=== PATIENT | male | born 1985 | race Caucasian/White ===

== ENCOUNTER 2022-06-19 13:28 | Emergency (ER) | payer MEDICAID, SELFPAY ==
[2022-06-19 13:44] VITALS: BP 169/108; PULSE 107; RESP 19; TEMP 36.8; O2SAT 94; BMI 23.7
[2022-06-19 13:48] VITALS: BP 169/108; PULSE 107; RESP 18; TEMP 36.6; O2SAT 94; BMI 23.7
--- NOTE | 2022-06-19 14:21 | ED_ITS ---
HPI - General Adult General: Chief complaint: General Medical Stated complaint: hands and face yasir Time Seen by Provider: 06/19/22 14:16 History of Present Illness: 36-year-old with history of alcoholism presents due to concern for cramping of his arm muscles and perioral paresthesias. States this started around 9 AM this morning. Denies any pain. States sensation is overall improving. Denies any head injury. States that sensation is equal bilaterally. Denies any weakness. States his last drink was yesterday. Denies any withdrawal seizure history. Review of Systems Narrative: - CONSTITUTIONAL: Denies weight loss, fever and chills. - HEENT: Denies changes in vision and hearing. - RESPIRATORY: Denies SOB and cough. - CV: Denies palpitations and CP. - GI: Denies abdominal pain, nausea, vomiting and diarrhea. - : Denies dysuria and urinary frequency. - MSK: Denies myalgia and joint pain. - SKIN: Denies rash and pruritus. - NEUROLOGICAL: As above - PSYCHIATRIC: Denies suicidal ideation PFSH ED PFSH: Medical History (Updated 01/02/20 @ 09:53 by JASMYNE Corbett) Alcoholism Anxiety and depression Lumbar disc disease Family History Other Hypertension Lupus nephritis Social History (Updated 01/02/20 @ 23:58 by JASMYNE Corbett) Smoking and tobacco status: current every day smoker Alcohol intake: current Alcohol intake frequency: other Household members: spouse and children Physical Exam Narrative: EXAM NARRATIVE: - GENERAL: Alert and oriented x 3. No acute distress. Well-nourished. - EYES: EOMI. Anicteric. - HENT: Atraumatic, no C-spine tenderness. Moist mucous membranes. No scleral icterus. No cervical lymphadenopathy. - LUNGS: Clear to auscultation bilaterally. No accessory muscle use. Equal lung sounds bilaterally. No respiratory distress. - CARDIOVASCULAR: Regular rate and rhythm. No murmur. No JVD. - ABDOMEN: Soft, non-tender and non-distended. Negative CVA tenderness bilaterally, no rebound or guarding, negative Pereyra sign. No palpable masses. - EXTREMITIES: No edema. Non-tender. Able to freely move arm and hand muscles. - SKIN: No rashes or lesions. Warm. - NEUROLOGIC: No meningismus or focal neurological deficits. CN II-XII grossly intact. - PSYCHIATRIC: Cooperative. Appropriate mood and affect. Course Vital Signs: Vital signs: Vital Signs Temperature 97.9 F 06/19/22 13:48 Pulse Rate 107 H 06/19/22 13:48 Respiratory Rate 18 06/19/22 13:48 Blood Pressure 169/108 06/19/22 13:48 Pulse Oximetry 94 06/19/22 13:48 MDM - General Adult Medical Decision Making 36-year-old presents due to perioral paresthesias and muscle contractions. Lab work including electrolytes unremarkable except for elevated LFTs for which outpatient follow-up was recommended. This is likely secondary to his alcoholism. He denies any right upper quadrant pain his negative Pereyra sign. No focal neurologic deficits present on exam. Symptoms are equal bilaterally. At this time I believe patient would be safe for discharge and outpatient follow-up. Return precautions provided. Plan was reviewed with the patient who expressed understanding. Questions answered. Patient will follow up with PCP. Patient discharged in stable condition. Lab Data : 06/19/22 14:53 06/19/22 14:53 Laboratory Results WBC 7.0 10^3/uL (4.0-10.0) 06/19/22 14:53 RBC 5.67 10^6/uL (4.1-5.3) H 06/19/22 14:53 Hgb 19.5 g/dL (11.7-16.6) H 06/19/22 14:53 Hct 53.8 % (42.0-52.0) H 06/19/22 14:53 MCV 94.9 fl (80-94) H 06/19/22 14:53 MCH 34.4 pg (28.0-34.0) H 06/19/22 14:53 MCHC 36.2 g/dL (30.0-36.0) H 06/19/22 14:53 RDW 14.2 % (12.1-15.1) 06/19/22 14:53 Plt Count 125 10^3/cmm (130-400) L 06/19/22 14:53 MPV 10.3 fL (7.4-10.4) 06/19/22 14:53 Neut % (Auto) 74.6 % 06/19/22 14:53 Lymph % (Auto) 14.2 % 06/19/22 14:53 [place] % (Auto) 9.9 % 06/19/22 14:53 Eos % (Auto) 0.3 % 06/19/22 14:53 Baso % (Auto) 0.7 % 06/19/22 14:53 Neut # (Auto) 5.22 10^3/uL (1.8-7.7) 06/19/22 14:53 Lymph # (Auto) 1.0 10^3/uL (0.8-4.8) 06/19/22 14:53 [place] # (Auto) 0.7 10^3/uL (0.2-0.9) 06/19/22 14:53 Eos # (Auto) 0.0 10^3/uL (0.0-0.8) 06/19/22 14:53 Baso # (Auto) 0.1 10^3/uL (0.0-0.1) 06/19/22 14:53 Nucleated RBC % (auto) 0 % 06/19/22 14:53 Nucleated RBCs # 0.0 /100WBC 06/19/22 14:53 Sodium 141 mmol/L (136-145) 06/19/22 14:53 Potassium 3.4 mmol/L (3.5-5.1) L 06/19/22 14:53 Chloride 92 mmol/L (98-107) L 06/19/22 14:53 Carbon Dioxide 31 mmol/L (22-29) H 06/19/22 14:53 Anion Gap 21.4 (5-19) H 06/19/22 14:53 BUN 9 mg/dL (6-20) 06/19/22 14:53 Creatinine 0.6 mg/dL (0.7-1.2) L 06/19/22 14:53 GFR Calculation 152.4 mL/min (90-130) H 06/19/22 14:53 Glucose 107 mg/dL (65-115) 06/19/22 14:53 Calculated Osmolality 291 mOsm/kg (285-295) 06/19/22 14:53 Calcium 9.6 mg/dL (8.5-10.5) 06/19/22 14:53 Magnesium 2.0 mg/dL (1.7-2.3) 06/19/22 14:53 Total Bilirubin 1.9 mg/dL (0.15-1.2) H 06/19/22 14:53 AST 54 U/L (0-40) H 06/19/22 14:53 ALT 63 U/L (0-41) H 06/19/22 14:53 Alkaline Phosphatase 198 IU/L (40-130) H 06/19/22 14:53 Total Protein 7.6 g/dL (6.6-8.7) 06/19/22 14:53 Albumin 5.1 g/dL (3.5-5.2) 06/19/22 14:53 Globulin 2.5 g/dL (1.3-4.6) 06/19/22 14:53 TSH 3.26 uIU/mL (0.27-4.20) 06/19/22 14:53 Free T4 1.19 ng/dL (0.82-1.77) 06/19/22 14:53 Ethyl Alcohol 11 mg/dL (0-10) H 06/19/22 14:53 Discharge Plan Discharge Condition: Stable Prescriptions: No Action ibuprofen 800 mg tablet 800 mg PO Q8H Qty: 90 1RF Rx Instructions: Take on scheduled basis DO NOT TAKE WITH OTC IBUPROFEN methylprednisolone [Methylpred DP] 4 mg tablets,dose pack See Rx Instructions PO PER PKG DIR Qty: 21 0RF Rx Instructions: PO PER PKG DIR Referrals: Niki Saunders FNP [Primary Care Provider] - Coding Level of Care Code ED Blood Bank Order Control Clerk for Keshawn Pelaez
[2022-06-19] MEDS: sodium chloride 0.9% 1,000 ML 999 ML IV (14:56)
[2022-06-19] MEDS: multivitamin therapeutic Tablet 1 TAB PO (14:56)
[2022-06-19 15:01] LABS: Basophils # 0.1 10^3/uL (0.0-0.1); Basophils % 0.7 %; Eosinophils % 0.3 %; Hematocrit 53.8 % (42.0-52.0); Hemoglobin 19.5 g/dL (11.7-16.6); Lymphocytes % 14.2 %; Mean Corpuscular HGB Conc 36.2 g/dL (30.0-36.0); Mean Corpuscular Hemoglobin 34.4 pg (28.0-34.0); Mean Corpuscular Volume 94.9 fl (80-94); Mean Platelet Volume 10.3 fL (7.4-10.4); Monocytes # 0.7 10^3/uL (0.2-0.9); Monocytes % 9.9 %; Neutrophils # 5.22 10^3/uL (1.8-7.7); Neutrophils % 74.6 %; Nucleated Red Blood Cells % 0 %; Platelet Count 125 10^3/cmm (130-400); Red Blood Count 5.67 10^6/uL (4.1-5.3); Red Cell Distribution Width 14.2 % (12.1-15.1)
[2022-06-19 15:37] LABS: Alanine Aminotransferase 63 U/L (0-41); Albumin Level 5.1 g/dL (3.5-5.2); Alcohol Level 11 mg/dL (0-10); Alkaline Phosphatase 198 IU/L (40-130); Anion Gap 21.4 (5-19); Aspartate Amino Transferase 54 U/L (0-40); Blood Urea Nitrogen 9 mg/dL (6-20); Calcium 9.6 mg/dL (8.5-10.5); Carbon Dioxide 31 mmol/L (22-29); Chloride 92 mmol/L (98-107); Free T4 Free Thyroxine 1.19 ng/dL (0.82-1.77); Globulin 2.5 g/dL (1.3-4.6); Glomerular Filtration Rate 152.4 mL/min (90-130); Glucose 107 mg/dL (65-115); Osmolality Calculated 291 mOsm/kg (285-295); Potassium 3.4 mmol/L (3.5-5.1); Sodium 141 mmol/L (136-145); Thyroid Stimulating Hormone 3.26 uIU/mL (0.27-4.20); Total Bilirubin 1.9 mg/dL (0.15-1.2); Total Protein 7.6 g/dL (6.6-8.7)
[2022-06-19 16:30] VITALS: BP 142/100; PULSE 70; RESP 15; O2SAT 98
[2022-06-19 16:59] VITALS: BP 150/101; PULSE 80; RESP 14; O2SAT 98
== END 2022-06-19 17:03 | disposition home or self-care (01) ==
PROVIDERS: Emergency Provider Emergency Medicine; PCP Nurse Practitioner
DX: R25.2 Cramp and spasm (principal); R20.2 Paresthesia of skin; F17.210 Nicotine dependence, cigarettes, uncomplicated
CPT/HCPCS: 80053; 80307; 83735; 84439; 84443; 85025; 96360; 96361; 99284; J7030

== ENCOUNTER 2024-05-04 20:33 | Emergency (ER) | payer MEDICAID, SELFPAY ==
[2024-05-04 20:43] VITALS: BP 128/108; PULSE 137; RESP 17; TEMP 36.5; O2SAT 93; BMI 21.7
--- NOTE | 2024-05-04 20:56 | ED.C_ITS ---
HPI - Psych 2 General: Chief Complaint: Psychiatric Symptoms Stated Complaint: SI Time Seen by Provider: 05/04/24 20:36 History of Present Illness: Patient arrives to the ER with severe depression and alcohol intoxication. Patient states he drank 2 pints of whiskey since 10:00 this morning. He also smokes weed. Patient is denying suicidal ideation however he wishes he would just go to sleep and not wake up. He is adamant about not wanting to harm himself or harm anyone else. He states he has been inpatient here 3-4 times. At this time patient is willing to go inpatient again for for further treatment. Review of Systems 2 General: Reports: 10 or more systems reviewed and unremarkable except in HPI and below PFSH ED 2 PFSH: Medical History Lumbar disc disease Anxiety and depression Alcoholism Family History Mother Stroke Other Hypertension Lupus nephritis Denies family history of Diabetes CAD (coronary artery disease) Clotting disorder Dementia Hyperlipidemia Psychiatric illness Chronic kidney disease (CKD) Anesthesia complication Bleeding disorder Lung disease Cancer Social History Smoking and tobacco/nicotine status: current every day tobacco/nicotine user cigarettes [ Other cigarette details: 1PPD, 20PY] Alcohol intake: former Substance/Drug Use: current Substance/Drug use frequency: few times a week Other substance/drug use details: last used on 10/04/22 Lives independently: Yes Household members: spouse and children Marital status: Single Current occupational status: unemployed Current gender identity: Male Physical Exam 2 Const: COMMON NORMALS: no acute distress, average body habitus, patient oriented x3, no limitations, healthy appearing, alert and well nourished HENMT: COMMON NORMALS: normocephalic, atraumatic, hearing grossly normal bilaterally, external ears normal, Normal external nose present and moist oral mucous membranes HEAD & SCALP: normocephalic and atraumatic NOSE: Normal external nose present EXTERNAL EAR: Yes external ears normal Neck/C-Spine: COMMON NORMALS: no JVD Chest: COMMONS NORMALS: normal inspection of the chest and normal palpation of entire chest wall Resp: COMMON NORMALS: normal respiratory effort, No retractions, No use of accessory muscles and clear to auscultation bilaterally AUSCULTATION: clear to auscultation bilaterally Cardio: COMMON NORMALS: no JVD, regular rate, regular rhythm, S1 normal heart sound present, S2 normal heart sound present, No gallops present (Cardio), No clicks present (Cardio), No murmurs present (Cardio) and No rub (Cardio) R ATE: regular rate RHYTHM: regular rhythm HEART SOUNDS: S1 normal heart sound present and S2 normal heart sound present GI: COMMON NORMALS: Normal to inspection, nondistended, normoactive bowel sounds present, Soft to palpation, non-tender, No hepatosplenomegaly present and no bruits PALPATION: Yes Soft to palpation and Yes No hepatosplenomegaly present Neuro: COMMON NORMALS: patient oriented x3 SENSORIUM/ORIENTATION: Yes alert Course 2 Vital Signs: Vital signs: Vital Signs Temperature 97.7 F 05/04/24 20:43 Pulse Rate 137 H 05/04/24 20:43 Respiratory Rate 17 05/04/24 20:43 Blood Pressure 128/108 05/04/24 20:43 Pulse Oximetry 93 05/04/24 20:43 Oxygen Delivery Me thod Room Air 05/04/24 20:43 MDM - Psych Medical Decision Making Patient will be evaluated and cleared from medical standpoint anticipate admission to [facility]. During his ER stay while he waited for lab work to be finished to clear him medically patient change his mind several times about wanting to be admitted or wanting to leave. Patient finally said he wanted to leave. Patient is not directly suicidal or homicidal. Patient just very depressed. Patient will be admitted to leave AMA. Differential Diagnosis Likely suicidal ideation and depression Medical Records I reviewed the patient's medical records. Lab Data I reviewed the patient's lab results. 05/04/24 20:50 05/04/24 20:50 Laboratory Results WBC 9.70 10^3/uL (3.29-11.43) 05/04/24 20:50 RBC 6.08 10^6/uL (3.85-5.65) H 05/04/24 20:50 Hgb 18.70 g/dL (11.27-16.99) H 05/04/24 20:50 Hct 53.1 % (37-53) H 05/04/24 20:50 MCV 87.3 fl (82-101) 05/04/24 20:50 MCH 30.8 pg (27-33) 05/04/24 20:50 MCHC 35.2 g/dL (30-55) 05/04/24 20:50 RDW 13.0 % (12.1-15.1) 05/04/24 20:50 Plt Count 190 10^3/cmm (157-399) 05/04/24 20:50 MPV 11.0 fL (7.4-10.4) H 05/04/24 20:50 Neut % (Auto) 57.5 % 05/04/24 20:50 Lymph % (Auto) 32.3 % 05/04/24 20:50 [place] % (Auto) 7.2 % 05/04/24 20:50 Eos % (Auto) 1.6 % 05/04/24 20:50 Baso % (Auto) 1.1 % 05/04/24 20:50 Neut # (Auto) 5.57 10^3/uL (1.8-7.7) 05/04/24 20:50 Lymph # (Auto) 3.1 10^3/uL (0.8-4.8) 05/04/24 20:50 [place] # (Auto) 0.7 10^3/uL (0.2-0.9) 05/04/24 20:50 Eos # (Auto) 0.2 10^3/uL (0.0-0.8) 05/04/24 20:50 Baso # (Auto) 0.1 10^3/uL (0.0-0.1) 05/04/24 20:50 Nucleated RBC % (auto) 0 % 05/04/24 20:50 Nucleated RBCs # 0.0 /100WBC 05/04/24 20:50 No radiology studies performed this visit Discharge Plan Discharge Patient Disposition: Left Against Medical Advice Clinical Impression: Depression, Alcohol intoxication Condition: Stable Prescriptions: No Action fluoxetine 20 mg tablet 40 mg PO DAILY 90 Days Qty: 180 0RF loratadine 10 mg tablet 10 mg PO DAILY Qty: 30 0RF Coding Level of Care Code ED Horticultural Farmworker for Keshawn Pelaez
[2024-05-04 21:13] LABS: Basophils # 0.1 10^3/uL (0.0-0.1); Basophils % 1.1 %; Eosinophils # 0.2 10^3/uL (0.0-0.8); Eosinophils % 1.6 %; Hematocrit 53.1 % (37-53); Lymphocytes # 3.1 10^3/uL (0.8-4.8); Lymphocytes % 32.3 %; Mean Corpuscular HGB Conc 35.2 g/dL (30-55); Mean Corpuscular Hemoglobin 30.8 pg (27-33); Mean Corpuscular Volume 87.3 fl (82-101); Monocytes # 0.7 10^3/uL (0.2-0.9); Monocytes % 7.2 %; Neutrophils # 5.57 10^3/uL (1.8-7.7); Neutrophils % 57.5 %; Nucleated Red Blood Cells % 0 %; Platelet Count 190 10^3/cmm (157-399); Red Blood Count 6.08 10^6/uL (3.85-5.65)
[2024-05-04 21:34] LABS: Alanine Aminotransferase 97 U/L (0-41); Albumin Level 5.3 g/dL (3.5-5.2); Alcohol Level 270 mg/dL (0-10); Alkaline Phosphatase 159 U/L (40-130); Anion Gap 33.6 (5-19); Aspartate Amino Transferase 88 U/L (0-40); Blood Urea Nitrogen 11 mg/dL (6-20); Calcium 9.5 mg/dL (8.5-10.5); Carbon Dioxide 21 mmol/L (22-29); Chloride 90 mmol/L (98-107); Creatinine Clr Calc Pharmacy 178.4764; Globulin 3.1 g/dL (1.3-4.6); Glomerular Filtration Rate 150.8 mL/min (90-130); Glucose 81 mg/dL (65-115); Osmolality Calculated 290 mOsm/kg (285-295); Potassium 3.6 mmol/L (3.5-5.1); Sodium 141 mmol/L (136-145); Total Bilirubin 1.4 mg/dL (0.15-1.2); Total Protein 8.4 g/dL (6.6-8.7)
[2024-05-04 21:37] LABS: Acetaminophen < 5.0 ug/mL (10-30); Salicylate < 0.3 mg/dL (3-10)
== END 2024-05-04 21:35 | disposition left against medical advice (07) ==
PROVIDERS: Emergency Provider Emergency Medicine
DX: F32.A Depression, unspecified (principal); F10.129 Alcohol abuse with intoxication, unspecified; Y90.9 Presence of alcohol in blood, level not specified; F17.210 Nicotine dependence, cigarettes, uncomplicated; Z53.29 Procedure and treatment not carried out because of patient's decision for other reasons
CPT/HCPCS: 36415; 80053; 80307; 85025; 99283

== ENCOUNTER 2025-10-26 15:56 | Emergency (ER) | payer SELFPAY ==
[2025-10-26 15:57] VITALS: BP 147/93; PULSE 89; RESP 18; TEMP 36.7; O2SAT 96
--- NOTE | 2025-10-26 16:25 | ED_ITS ---
HPI - Alcohol General: Chief Complaint: Alcohol Stated Complaint: etoh Time Seen by Provider: 10/26/25 15:58 Source: patient Mode of arrival: ambulatory Limitations: no limitations History of Present Illness: Patient is a 40-year-old male with past medical history of alcohol abuse disorder and previous psychiatric care presenting to the emergency department for EtOH intoxication. He tells me that he has been withdrawing, despite stating that his last drink of alcohol was just prior to coming in and that today he has had 1/5 of vodka. States that he is not here for alcohol rehab just wants an IV and a banana bag. He refuses to answer any questions about SI or HI stating he does not think this pertains to why he is here. Does not want resources for rehab. He is notably agitated at this time. Vital stable. No focal neurological deficit. He is a poor historian and does not provide any review of systems making this limited at the time. MD complaint: alcohol intoxication Last drink: Just DIRECTOR OF DIAGNOSTIC IMAGING Amount of alcohol consumed: 5th of vodka Chronic alcohol use: Yes Previous visits for alcohol intoxication: Yes Related Data Previous Rx's ?Medication ?Instructions ?Recorded bupropion HCl 300 mg 24 hr tablet, 300 mg PO QAM #30 t abs 01/28/25 extended release (Wellbutrin XL) paroxetine HCl 20 mg tablet (Paxil) 20 mg PO DAILY #30 tabs 01/28/25 paroxetine HCl 40 mg tablet (Paxil) 40 mg PO DAILY #30 tabs 01/28/25 sertraline 50 mg tablet (Zoloft) 50 mg PO DAILY #30 ta bs 01/28/25 trazodone 50 mg tablet 100 mg (2 x 50 mg) PO .HS IN N 01/28/25 insomnia #60 tabs Allergies Allergy/AdvReac Type Severity Reaction Status Date / Time No Known Allergies Allergy Verified 01/28/25 15:00 Review of Systems General: Reports: Other (Unobtainable, patient poor historian) [facility] ED PFSH: Medical History Psychiatric care Lumbar disc disease Anxiety and depression Alcoholism Family History Mother Stroke Other Hypertension Lupus nephritis Denies family history of Diabetes CAD (coronary artery disease) Clotting disorder Dementia Hyperlipidemia Psychiatric illness Chronic kidney disease (CKD) Anesthesia complication Bleeding disorder Lung disease Cancer Social History Smoking and tobacco/nicotine status: current every day tobacco/nicotine user cigarettes [ Other cigarette details: 1PPD, 20PY] Alcohol intake: former Substance/Drug Use: current Substance/Drug use frequency: few times a week Other substance/drug use details: last used on 10/04/22 Lives independently: Yes Household members: spouse and children Marital status: Single Current occupational status: unemployed Current gender identity: Male Physical Exam Const: ORIENTATION/CONSCIOUSNESS: Yes awake OTHER: Agitated, Uncooperative HENMT: COMMON NORMALS: normocephalic, atraumatic and hearing grossly normal bilaterally HEAD & SCALP: normocephalic and atraumatic Eye: COMMON NORMALS: Equal, round and reactive pupils present, EOMs intact bilaterally and conjunctivae normal CONJUNCTIVA: Yes conjunctivae normal P UPIL: Yes Equal, round and reactive pupils present Neck/C-Spine: COMMON NORMALS: full ROM, supple and no JVD Resp: COMMON NORMALS: normal respiratory effort, No retractions, No use of accessory muscles and clear to auscultation bilaterally AUSCULTATION: clear to auscultation bilaterally Cardio: COMMON NORMALS: no JVD, regular rate, regular rhythm, No clicks present (Cardio), No murmurs present (Cardio) and No rub (Cardio) RATE: regular rate RHYTHM: regular rhythm Extremity: COMMON NORMALS: normal to inspection, full ROM and capillary refill normal Psych: OTHER: does not answer psychiatric questions Skin: COMMON NORMALS: no rashes or lesions noted GENERAL SKIN EXAM: no rashes or lesions noted Course Vital Signs: Vital signs: Vital Signs Temperature 98.1 F 10/26/25 15:57 Pulse Rate 89 10/26/25 15:57 Respiratory Rate 18 10/26/25 15:57 Blood Pressure 147/93 10/26/25 15:57 Pulse Oximetry 96 10/26/25 15:57 Oxygen Delivery Me thod Room Air 10/26/25 15:57 MDM - Alcohol Medical Decision Making Patient presented stating he just wanted IV placed and to feel better after consuming alcohol today. He was telling me he was withdrawing, despite noting that his last drink was just prior to arrival and that he has had 1/5 of vodka today. Poor historian did not provide review of systems, overall exam limited and he refused to answer psychiatric questioning. IV placed he is given thiamine, fluids, Zofran, and Ativan for his agitated symptoms and will be discharged. No radiology studies performed this visit Discharge Plan Discharge Patient Disposition: Home Clinical Impression: Alcoholic intoxication Condition: Stable Prescriptions: No Action bupropion HCl [Wellbutrin XL] 300 mg tablet extended release 24 hr 300 mg PO QAM Qty: 30 2RF paroxetine HCl [Paxil] 20 mg tablet 20 mg PO DAILY Qty: 30 0RF paroxetine HCl [Paxil] 40 mg tablet 40 mg PO DAILY Qty: 30 2RF sertraline [Zoloft] 50 mg tablet 50 mg PO DAILY Qty: 30 0RF trazodone 50 mg tablet 100 mg PO .HS PRN (Reason: insomnia) Qty: 60 2RF Discharge Orders: Discharge ED (Routine); Ordered 10/26/25 Ordered By: Malachi Calderon Patient Instructions: Alcohol Intoxication (ED), Patient Portal & Finn Instructions Activity Restrictions/Additional Instructions: Stop drinking alcohol. Present to crisis center with any further issues. Print Language: Kiswahili Coding Level of Care Code ED Conference Service Coordinator for Keshawn Pelaez
[2025-10-26] MEDS: ondansetron 2 mg/ML SDV 2 mL 4 MG IVP (16:29)
[2025-10-26] MEDS: thiamine 100 mg/mL 2mL SDV IVP (16:30)
[2025-10-26] MEDS: LORazepam 2 mg/mL INJ 1 mL IVP (16:31)
[2025-10-26 16:36] VITALS: PULSE 96; O2SAT 97
--- NOTE | 2025-10-26 17:58 | PC.NURSE ---
PT STATES HE DOES NOT HAVE A WAY HOME, PT IS DRUNK. PT STATES HE WILL WALK HOME.
--- NOTE | 2025-10-26 18:08 | PC.NURSE ---
pt cursing at NEUROLOGY MANAGER stating I don't know why the fuck you guys are asking me that question, I just don't feel good. Pt continues to deny SI HI. When asked if pt would like any counseling services or rehab information pt states No I don't. That is not going to make me feel better.
== END 2025-10-26 18:10 | disposition home or self-care (01) ==
PROVIDERS: Emergency Provider Physician Assistant
DX: F10.129 Alcohol abuse with intoxication, unspecified (principal); F17.210 Nicotine dependence, cigarettes, uncomplicated
CPT/HCPCS: 36415; 96361; 96374; 96375; 99284; J2060; J2405; J3411; J7040